=== PATIENT | female | born 1945 | race African-American/Black ===

== ENCOUNTER 2016-09-28 15:32 | Emergency (ER) | payer MEDICARE ==
[~2016-09-28] VITALS: Ht 162.6 cm; Wt 81.4 kg
[~2016-09-28 15:32] MED LIST: ALLO100T64 PO; ASPI81TA3 PO; CALC0.255 PO; CARV25TA79 PO; DULO30CA45 PO; FERR-55 PO; HYD25 PO; LANT3I SC; LEVO250T35 PO; LISI-327 PO; LUBI24CA7 PO; METF-406 PO; NIFE30TA2 PO; NOV SC; OMEP20CA9 PO; SEVE0.8P PO; SMV40T PO
[2016-09-28 15:36] VITALS: Ht 162.6 cm; Wt 81.4 kg
[2016-09-28 17:00] LABS: ADD SCAN DIFF NO
[2016-09-28 17:06] LABS: ABNORMAL IP MESSAGE 1; BASOPHIL # 0.1 10^3/ul (0.0-0.1); BASOPHILS % 0.9 % (0.0-2.0); EOSINOPHILS # 0.2 10^3/ul (0.0-0.5); EOSINOPHILS % 1.7 % (0.0-7.0); HEMATOCRIT 37.7 % (37.0-47.0); HEMOGLOBIN 11.6 g/dl (12.0-16.0); LYMPHOCYTES # 5.1 10^3/ul (0.8-2.9); LYMPHOCYTES % 38.1 % (15.0-51.0); MEAN CORPUSCULAR HEMOGLOBIN 29.3 pg (29.0-33.0); MEAN CORPUSCULAR HGB CONC 30.8 g/dl (32.0-37.0); MEAN CORPUSCULAR VOLUME 95.2 fl (82.0-101.0); MEAN PLATELET VOLUME 11.4 fl (7.4-10.4); MONOCYTES % 7.7 % (0.0-11.0); NEUTROPHIL # 6.9 10^3/ul (1.6-7.5); NEUTROPHILS % 51.1 % (39.0-77.0); PLATELET COUNT 322 10^3/UL (140-415); RED BLOOD COUNT 3.96 10^6/ul (4.20-5.40); RED CELL DISTRIBUTION WIDTH 11.8 % (11.5-14.5); WHITE BLOOD COUNT 13.5 10^3/ul (4.8-10.8)
[2016-09-28 17:17] LABS: ALBUMIN 3.9 g/dl (3.3-4.9); CHLORIDE 110 mmol/L (97-110); POTASSIUM 3.7 mmol/L (3.5-5.1); SODIUM 145 mmol/L (135-144)
[2016-09-28 17:19] LABS: ANION GAP 13 (8-16); BILIRUBIN,INDIRECT 0.1 mg/dl (0-1.1); BILIRUBIN,TOTAL 0.1 mg/dl (0.2-1.3); CARBON DIOXIDE 26 mmol/L (21-31); CREATININE 1.42 mg/dl (0.44-1.00)
[2016-09-28 17:20] LABS: ALANINE AMINOTRANSFERASE 28 IU/L (13-69); ALBUMIN/GLOBULIN RATIO 1.14; ALKALINE PHOSPHATASE 86 IU/L (42-121); ASPARTATE AMINO TRANSFERASE 19 IU/L (15-46); BLOOD UREA NITROGEN 23 mg/dl (7-20); CALCIUM 9.2 mg/dl (8.4-10.2); GLUCOSE 51 mg/dl (70-220); TOTAL PROTEIN 7.3 g/dl (6.1-8.1)
[2016-09-28 17:21] LABS: INR 0.96; PARTIAL THROMBOPLASTIN TIME 24.7 Sec (25.0-35.0); PROTIME 12.8 Sec (12.2-14.2)
--- NOTE | 2016-09-28 17:34 | RADRPT ---
PROCEDURE: XR Chest. CLINICAL INDICATION: Chest pain. TECHNIQUE: Single frontal view. COMPARISON: 03/24/2016. FINDINGS: The lungs are clear. The heart size is normal. There is calcification in the aorta consistent with atherosclerosis. There is no pleural effusion. There is no pneumothorax. IMPRESSION: 1. Atherosclerosis. 2. Otherwise normal chest radiograph. RPTAT: QQ .Naseem Lee MD, MD Date Time Electronically viewed and signed by .Naseem Lee MD, MD on 09/28/2016 17:34 .R/
[2016-09-28 17:36] LABS: TROPONIN-I < 0.012 ng/ml (0.00-0.12)
[2016-09-28 18:32] VITALS: BP 137/65; PULSE 88; TEMP 98.2
[2016-09-28 18:36] LABS: ADD UMIC YES; URINE BILIRUBIN (Dip) NEGATIVE (NEGATIVE); URINE BLOOD (Dip) 2+ (NEGATIVE); URINE COLOR LT. YELLOW (YELLOW); URINE GLUCOSE (Dip) NEGATIVE (NEGATIVE); URINE KETONES (Dip) NEGATIVE (NEGATIVE); URINE LEUKOCYTE ESTERASE (Dip) 1+ (NEGATIVE); URINE NITRITE (Dip) NEGATIVE (NEGATIVE); URINE TOTAL PROTEIN (Dip) 4+ (NEGATIVE); URINE UROBILINOGEN (Dip) 0.2 E.U./dL (0.1-1.0)
[2016-09-28 19:03] LABS: BACTERIA,URINE MODERATE
[2016-09-28] MEDS ORDERED: CIPROFLOXACIN 500 MG TAB PO ONE (19:30)
--- NOTE | 2016-09-28 19:30 | ERD ---
ER Documentation Chief Complaint Date/Time DATE: 09/28/16 TIME: 19:28 Chief Complaint pt send by dr dixon to check hgb, cva 3 mos ago, since then feels dizzy HPI This is a 71-year-old female presents to the emergency room for evaluation of generalized weakness. This patient was sent in by her primary care physician, Dr. mason for evaluation of generalized weakness. The patient does state she is a type I diabetic on insulin at night. She has not eaten today. The patient is not eating because she has not had time she states. The patient came in for evaluation of her generalized weakness. She does state she had a CVA 3 months ago, denies any weakness more on one side of the body and the other. ROS All systems reviewed and are negative except as per history of present illness. Medications Home Meds Active Scripts Ferrous Sulfate* (Ferrous Sulfate*) 325 Mg Tablet, 325 MG PO TID for 30 Days, TAB Prov:SHEYLA OKEEFE 06/03/15 Allopurinol* (Zyloprim*) 100 Mg Tab, 100 MG PO DAILY for 30 Days, TAB Prov:SHEYLA OKEEFE 06/03/15 Reported Medications Lubiprostone* (Amitiza*) 24 Mcg Capsule, 24 MCG PO BID, #60 CAP 05/24/15 Duloxetine Hcl* (Cymbalta*) 30 Mg Capsule.dr, 30 MG PO DAILY, CAP 05/24/15 Lisinopril-Hydrochlorothiazide (Lisinopril-HCTZ) 20-12.5 Mg Tab, 1 TAB PO DAILY , #30 TAB 05/24/15 Insulin Glargine* (Lantus*) 100 Unit/Ml Soln, 63 UNIT SC HS, EA 05/24/15 Aspirin (Aspirin) 81 Mg Chew, 81 MG PO DAILY 12/07/12 Metformin Hcl* (Metformin Hcl* ER) 1,000 Mg Tab.er.24, 1000 MG PO BID 12/07/12 Hydrochlorothiazide* (Hydrochlorothiazide*) 25 Mg Tab, 25 MG PO DAILY 12/07/12 Simvastatin (Simvastatin) 40 Mg Tablet, 40 MG PO HS 12/07/12 Carvedilol* (Carvedilol*) 25 Mg Tablet, 25 MG PO BID 12/07/12 Omeprazole* (Prilosec*) 20 Mg Capsule.dr, 20 MG PO D 12/07/12 Discontinued Reported Medications Insulin Aspart* (Novolog Insulin Vial*) 100 U/Ml Vial, 0 SC SLIDING SCALE AC, VIAL 05/24/15 Discontinued Scripts Nifedipine (Procardia Xl) 30 Mg Tab.er.24, 30 MG PO BID for 30 Days, TAB Prov:NESHA PARRISH 03/25/16 Levofloxacin* (Levaquin*) 250 Mg Tablet, 250 MG PO DAILY@06 for 7 Days, TAB Prov:NESHA PARRISH 03/25/16 Calcitriol* (Rocaltrol*) 0.25 Mcg Cap, 1 MCG PO AC DINNER for 30 Days, CAP Prov:SHEYLA OKEEFE 06/03/15 Sevelamer Carbonate* (Renvela*) 0.8 Gm Liq, 1.6 GM PO WITH MEALS for 30 Days Prov:SHEYLA OKEEFE 06/03/15 Allergies Allergies: Coded Allergies: ceftriaxone (Verified Allergy, Unknown, 09/28/16) docusate (Verified Allergy, Unknown, 09/28/16) iron (Verified Allergy, Unknown, 09/28/16) PMhx/Soc History of Surgery: No Anesthesia Reaction: No Hx Neurological Disorder: No Hx Respiratory Disorders: No Hx Cardiac Disorders: Yes (HTN, CHF, hyperlipids) Hx Psychiatric Problems: No Hx Miscellaneous Medical Probl: No Hx Alcohol Use: No Hx Substance Use: No Hx Tobacco Use: Yes (3 cigs) Smoking Status: Current every day smoker Physical Exam Vitals Vital Signs Date Time Temp Pulse Resp B/P Pulse Ox O2 Delivery O2 Flow Rate FiO2 09/28/16 18:32 98.2 88 137/65 99 Room Air 09/28/16 15:36 98.2 74 133/66 99 Physical Exam Const: No acute distress Head: Atraumatic Eyes: Normal Conjunctiva ENT: Normal External Ears, Nose and Mouth. Neck: Full range of motion..~ No meningismus. Resp: Clear to auscultation bilaterally Cardio: Regular rate and rhythm, no murmurs Abd: Soft, non tender, non distended. Normal bowel sounds Skin: No petechiae or rashes Back: No midline or flank tenderness Ext: No cyanosis, or edema Neur: Awake and alert Psych: Normal Mood and Affect Result Diagram: 09/28/16 1655 09/28/16 1655 Results 24 hrs Laboratory Tests Test 09/28/16 16:55 09/28/16 18:10 White Blood Count 13.510^3/ul Red Blood Count 3.9610^6/ul Hemoglobin 11.6g/dl Hematocrit 37.7% Mean Corpuscular Volume 95.2fl Mean Corpuscular Hemoglobin 29.3pg Mean Corpuscular Hemoglobin Concent 30.8g/dl Red Cell Distribution Width 11.8% Platelet Count 59396^3/UL Mean Platelet Volume 11.4fl Neutrophils % 51.1% Lymphocytes % 38.1% Monocytes % 7.7% Eosinophils % 1.7% Basophils % 0.9% Nucleated Red Blood Cells % 0.0/100WBC Neutrophils # 6.910^3/ul Lymphocytes # 5.110^3/ul Monocytes # 1.010^3/ul Eosinophils # 0.210^3/ul Basophils # 0.110^3/ul Nucleated Red Blood Cells # 0.010^3/ul Prothrombin Time 12.8Sec Prothrombin Time Ratio 1.0 INR International Normalized Ratio 0.96 Activated Partial Thromboplast Time 24.7Sec Sodium Level 145mmol/L Potassium Level 3.7mmol/L Chloride Level 110mmol/L Carbon Dioxide Level 26mmol/L Anion Gap 13 Blood Urea Nitrogen 23mg/dl Creatinine 1.42mg/dl Glucose Level 51mg/dl Calcium Level 9.2mg/dl Total Bilirubin 0.1mg/dl Direct Bilirubin 0.00mg/dl Indirect Bilirubin 0.1mg/dl Aspartate Amino Transf (AST/SGOT) 19IU/L Alanine Aminotransferase (ALT/SGPT) 28IU/L Alkaline Phosphatase 86IU/L Troponin I < 0.012ng/ml Total Protein 7.3g/dl Albumin 3.9g/dl Globulin 3.40g/dl Albumin/Globulin Ratio 1.14 Urine Color LT. YELLOW Urine Clarity CLOUDY Urine pH 6.0 Urine Specific [place] 1.025 Urine Ketones NEGATIVE Urine Nitrite NEGATIVE Urine Bilirubin NEGATIVE Urine Urobilinogen 0.2 E.U./dL Urine Leukocyte Esterase 1+ Urine Microscopic RBC 10-25/HPF Urine Microscopic WBC >50/HPF Urine Epithelial Cells MODERATE Urine Bacteria MODERATE Urine Hemoglobin 2+ Urine Glucose NEGATIVE% Urine Total Protein 4+ Current Medications Medications (Trade) Dose Ordered Sig/Grace Route PRN Reason Start Time Stop Time Status Last Admin Dose Admin Ciprofloxacin (Cipro) 500 mg ONCE ONCE PO 09/28/16 19:30 09/28/16 19:31 Procedures/MDM EKG: Rate/Rhythm: [Normal Sinus Rhythm] QRS, ST, T-waves: [No changes consistent w/ acute ischemia] Impression: [No evidence of ischemia or arrhythmia] Chest X-ray 1V Interpreted by me: Soft Tissue: No acute abnormalities Bones: No acute abnormalities Mediastinum/Cardiac Silhouette/Lungs: [No acute abnormalities] This 71-year-old female presents to the ER for evaluation of generalized weakness. She does have a history of a previous CVA. She had no focal neurological deficits on my examination and was alert oriented to person place and time. EKG is nonischemic. This patient's lab work does show glucose of 15 1. She was given sandwich and juice in the emergency room. Urinalysis also reveals white blood cells in the urine and positive leukocyte Estrace. This patient likely has a combination of hypoglycemia and urinary tract infection causing her generalized fatigue. This patient was given ciprofloxacin in the emergency room will be discharged home with a prescription for ciprofloxacin to take over the course of the next 10 days. Departure Diagnosis: Primary Impression: Acute cystitis Additional Impressions: Hypoglycemia Renal insufficiency Weakness Condition: Stable ELOISE BYRD DO Sep 28, 2016 19:30
[2016-09-28] MEDS ORDERED: CIPR500T4 PO (19:31)
== END 2016-09-28 19:49 | disposition home or self-care (01) ==
LOC: E/R 15:32
DX: N30.00 Acute cystitis without hematuria (principal); E11.649 Type 2 diabetes mellitus with hypoglycemia without coma; N28.9 Disorder of kidney and ureter, unspecified; R53.1 Weakness; I10 Essential (primary) hypertension; I50.9 Heart failure, unspecified; F17.210 Nicotine dependence, cigarettes, uncomplicated; Z79.4 Long term (current) use of insulin; Z79.82 Long term (current) use of aspirin; Z79.84 Long term (current) use of oral hypoglycemic drugs
CPT/HCPCS: 36415; 71010; 80053; 81001; 81003; 84484; 85025; 85610; 85730; 93005